=== PATIENT | female | born 1970 | race African-American/Black ===

== ENCOUNTER 2020-09-05 23:10 | Emergency (ER) | payer MEDICAID ==
[~2020-09-05] VITALS: Ht 170.2 cm; Wt 69.0 kg
[~2020-09-05 23:10] MED LIST: DILANTIN; KEPPRA
[2020-09-06 00:24] LABS: CHLORIDE 108 mEq/L (98-107)
[2020-09-06 00:25] LABS: BASOPHILS % 0.6 % (0.0-2.0); HEMOGLOBIN. 11.9 g/dL (12.0-16.0); LYMPHOCYTES % 47.8 % (20.0-50.0); MEAN CORPUSCULAR HEMOGLOBIN 29.6 pg (28.0-32.0); MEAN CORPUSCULAR VOLUME 89.6 fL (81.0-99.0); MEAN PLATELET VOLUME 9.7 fl (7.4-10.4); MONOCYTES % 9.6 % (2.0-8.0); PLATELET 297 x1000/uL (130-400); RED BLOOD CELL COUNT 4.02 mill/uL (4.2-5.4); RED CELL DISTRIBUTION WIDTH 13.1 % (11.6-14.6)
[2020-09-06 01:45] LABS: INR 0.9; PROTHROMBIN TIME 9.9 sec (9.6-11.0)
[2020-09-06] MEDS ORDERED: IOHEXOL-350 100 ML BOTTLE ONE (03:14)
[2020-09-06 04:35] VITALS: BP 150/89
== END 2020-09-06 04:37 | disposition home or self-care (01) ==
LOC: ER 23:10
DX: R07.89 Other chest pain (principal); M79.89 Other specified soft tissue disorders; M79.672 Pain in left foot; R00.0 Tachycardia, unspecified; G40.909 Epilepsy, unspecified, not intractable, without status epilepticus
CPT/HCPCS: 36415; 71275; 80053; 84484; 85025; 85610; 93005; 93971; 99285; Q9967